=== PATIENT | female | born 1975 | race Two or more races ===

== ENCOUNTER 2022-02-24 23:24 | Emergency (ER) | payer OTHER ==
[2022-02-24] MEDS ORDERED: EPINEPHrine 1 MG/ML SDV IM STA (23:29)
[2022-02-24] MEDS ORDERED: diphenhydrAMINE 50 MG/ML SDV IVPUSH ONE (23:29)
[2022-02-24] MEDS ORDERED: Ondansetron 4 MG/2 ML SDV IVPUSH STA (23:31)
[2022-02-24] MEDS ORDERED: hydrOXYzine HCl 50 MG/ML SDV IM ONE (23:31)
[2022-02-24] MEDS ORDERED: methylPREDNISolone Sodium Succinate 125 MG/2 ML SDV IM ONE (23:35)
== END 2022-02-25 00:50 | disposition home or self-care (01) ==
LOC: FB.ED 23:24
DX: T78.1XXA Other adverse food reactions, not elsewhere classified, initial encounter (principal); Z91.018 Allergy to other foods; Z88.8 Allergy status to other drugs, medicaments and biological substances; Z79.899 Other long term (current) drug therapy
CPT/HCPCS: 96372; 96374; 96375; 99283; 99283-25; J0171; J1200; J2405; J2930

== ENCOUNTER 2022-10-30 20:14 | Emergency (ER) | payer BC, MEDICAID, OTHER ==
[2022-10-30] MEDS ORDERED: Sodium Chloride 0.9% 1,000 ML IV ONE (20:20)
[2022-10-30] MEDS ORDERED: diphenhydrAMINE 50 MG/ML SDV IVPUSH ONE (20:20)
[2022-10-30] MEDS ORDERED: methylPREDNISolone Sodium Succinate 125 MG/2 ML SDV IVPUSH ONE (20:20)
[2022-10-30] MEDS ORDERED: Ondansetron 4 MG/2 ML SDV IVPUSH ONE (20:21)
[2022-10-30] MEDS ORDERED: Famotidine 20 MG/2 ML SDV IVPUSH ONE (20:38)
== END 2022-10-30 21:24 | disposition home or self-care (01) ==
LOC: FB.ED 20:14
DX: T78.2XXA Anaphylactic shock, unspecified, initial encounter (principal); I10 Essential (primary) hypertension; Z91.013 Allergy to seafood; Z88.6 Allergy status to analgesic agent; Z88.8 Allergy status to other drugs, medicaments and biological substances; Z79.899 Other long term (current) drug therapy
CPT/HCPCS: 96361; 96374; 96375; 99284-25; J2405; J2930; J3490; J7030

== ENCOUNTER 2022-10-31 01:05 | Emergency (ER) | payer MEDICAID ==
[2022-10-31] MEDS ORDERED: Ondansetron 4 MG Tab.DIS PO ONE (01:09)
[2022-10-31] MEDS ORDERED: Famotidine 20 MG/2 ML SDV IVPUSH ONE (01:27)
[2022-10-31] MEDS ORDERED: methylPREDNISolone Sodium Succinate 125 MG/2 ML SDV IVPUSH ONE (01:27)
[2022-10-31 02:32] LABS: ESTIMATED GFR 79 mL/min (>60)
== END 2022-10-31 03:00 | disposition home or self-care (01) ==
LOC: FB.ED 01:05
DX: T78.2XXA Anaphylactic shock, unspecified, initial encounter (principal); I10 Essential (primary) hypertension; Z88.8 Allergy status to other drugs, medicaments and biological substances; Z91.013 Allergy to seafood; Z79.899 Other long term (current) drug therapy
CPT/HCPCS: 80053; 83520; 85025; 96374; 96375; 99284-25; J2930; J3490; Q0162

== ENCOUNTER 2022-12-26 22:50 | Emergency (ER) | payer MEDICAID ==
[2022-12-26] MEDS ORDERED: Sodium Chloride 0.9% 1,000 ML IV ONE (22:58)
[2022-12-26] MEDS ORDERED: Famotidine 20 MG/2 ML SDV IVPUSH ONE (22:59)
[2022-12-26] MEDS ORDERED: methylPREDNISolone Sodium Succinate 125 MG/2 ML SDV IVPUSH ONE (22:59)
[2022-12-26] MEDS ORDERED: Albuterol 0.083% 2.5 MG/3 ML Neb Soln NEB ONE (22:59)
== END 2022-12-27 00:12 | disposition home or self-care (01) ==
LOC: FB.ED 22:50
DX: T78.2XXA Anaphylactic shock, unspecified, initial encounter (principal); I10 Essential (primary) hypertension; Z88.8 Allergy status to other drugs, medicaments and biological substances; Z91.013 Allergy to seafood; Z79.899 Other long term (current) drug therapy
CPT/HCPCS: 94640; 96361; 96374; 96375; 99284; J2930; J3490; J7030

== ENCOUNTER 2023-11-22 07:29 | Day surgery (SDC) | payer MEDICAID, OTHER ==
[2023-11-22] MEDS ORDERED: Midazolam 1 MG/ML 2 ML SDV IV ONE (07:30)
[2023-11-22] MEDS ORDERED: Lactated Ringers 1,000 ML IV SCH (07:30)
[2023-11-22] MEDS ORDERED: Sodium Chloride 0.9% 10 ML Syringe FLUSH PRN (07:30)
[2023-11-22] MEDS ORDERED: Propofol 200 MG/20 ML SDV IV ONE (07:30)
[2023-11-22] MEDS ORDERED: Simethicone Drops 40 MG/0.6 ML 30 ML Bottle PO ONE (09:27)
== END 2023-11-22 10:44 | disposition home or self-care (01) ==
LOC: FB.SDS 07:29
PROVIDERS: ATTEND Surgery
DX: K62.5 Hemorrhage of anus and rectum (principal); R19.5 Other fecal abnormalities; I10 Essential (primary) hypertension; Z79.899 Other long term (current) drug therapy; Z88.8 Allergy status to other drugs, medicaments and biological substances; Z88.6 Allergy status to analgesic agent
CPT/HCPCS: 45378; A9270; J2250; J2704; J7120; 00811

== ENCOUNTER 2024-06-14 13:58 | Emergency (ER) | payer MEDICAID ==
[2024-06-14] MEDS: methylPREDNISolone Sodium Succinate 125 MG/2 ML SDV IM ONE (14:37)
[2024-06-14] MEDS: Albuterol/Ipratropium 3.0-0.5 MG/3 ML Neb Soln NEB ONE (14:37)
[2024-06-14] MEDS: Benzonatate 100 MG Cap PO ONE (14:39)
== END 2024-06-14 16:01 | disposition home or self-care (01) ==
LOC: FB.ED 13:58
DX: J45.909 Unspecified asthma, uncomplicated (principal); J20.9 Acute bronchitis, unspecified; I10 Essential (primary) hypertension; Z86.16 Personal history of COVID-19; Z79.899 Other long term (current) drug therapy; Z88.8 Allergy status to other drugs, medicaments and biological substances; Z91.013 Allergy to seafood; Z88.6 Allergy status to analgesic agent
CPT/HCPCS: 71046; 94640; 96372; 99283; 99285; A9270; J2919; J7620

== ENCOUNTER 2024-10-10 18:20 | Emergency (ER) | payer MEDICAID ==
[2024-10-10 19:06] LABS: BASOPHILS ABSOLUTE AUTO 0.1 x10-3/uL (0.0-0.1); EOSINOPHILS ABSOLUTE AUTO 1.5 x10-3/uL (0.0-0.8); EOSINOPHILS PERCENT AUTO 11.4 % (0.6-8.1); HEMATOCRIT 38.8 % (34.2-48.2); HEMOGLOBIN 12.4 g/dL (11.4-15.5); LYMPHOCYTES ABSOLUTE AUTO 3.5 x10-3/uL (1.0-4.4); LYMPHOCYTES PERCENT AUTO 26.5 % (18.4-52.1); MEAN CORPUSCULAR HEMOGLOBIN 24.3 pg (23.9-33.9); MEAN CORPUSCULAR VOLUME 76.1 fL (76.7-100.5); MEAN PLATELET VOLUME 7.2 fL (7.1-12.4); MONOCYTES ABSOLUTE AUTO 0.9 x10-3/uL (0.3-1.0); MONOCYTES PERCENT AUTO 6.5 % (4.4-15.7); NEUTROPHILS ABSOLUTE AUTO 7.2 x10-3/uL (1.5-6.3); NEUTROPHILS PERCENT AUTO 54.6 % (30.8-76.2); PLATELET COUNT,PLT 402 x10(3)uL (151-488); RED CELL DISTRIBUTION WIDTH 15.7 % (12.3-16.5); WHITE BLOOD CELL COUNT,WBC 13.2 x10-3/uL (3.0-10.3)
[2024-10-10 19:10] LABS: BLOOD UREA NITROGEN,BUN 12 mg/dL (7-18); BUN/CREATININE RATIO 17.1 (9-20); CARBON DIOXIDE,CO2 24 mmol/L (21-32); CHLORIDE,CL 106 mmol/L (100-110); CREATININE 0.7 mg/dL (0.55-1.02); ESTIMATED GFR 105 mL/min (>60); GLUCOSE RANDOM 83 mg/dL (80-116); POTASSIUM,K 3.6 mmol/L (3.5-5.3); SODIUM,NA 140 mmol/L (135-145)
[2024-10-10 19:15] LABS: A/G RATIO 0.9; ALANINE AMINOTRANSFERASE,ALT 27 U/L (12-36); ALBUMIN 3.4 g/dL (3.5-5.2); ALKALINE PHOSPHATASE 75 IU/L (56-112); ASPARTATE AMNIOTRANSFERASE,AST 11 IU/L (5-25); BILIRUBIN TOTAL 0.3 mg/dL (0.1-1.3); PROTEIN TOTAL,TP 7.2 g/dL (6.0-8.0)
[2024-10-10] MEDS: Montelukast 10 MG Tab PO ONE (19:48)
[2024-10-10] MEDS: Albuterol/Ipratropium 3.0-0.5 MG/3 ML Neb Soln NEB ONE (19:48)
[2024-10-10] MEDS: methylPREDNISolone Sodium Succinate 125 MG/2 ML SDV IM ONE (20:26)
== END 2024-10-10 20:51 | disposition home or self-care (01) ==
LOC: FB.ED 18:20
DX: J45.909 Unspecified asthma, uncomplicated (principal); I10 Essential (primary) hypertension; Z86.16 Personal history of COVID-19; Z88.0 Allergy status to penicillin; Z88.8 Allergy status to other drugs, medicaments and biological substances; Z91.013 Allergy to seafood; Z79.51 Long term (current) use of inhaled steroids; Z79.899 Other long term (current) drug therapy
CPT/HCPCS: 36415; 71046; 80053; 85025; 86140; 94640; 96372; 99284; A9270-GY; J2919; J7620

== ENCOUNTER 2024-10-17 00:17 | Emergency (ER) | payer MEDICAID ==
[2024-10-17] MEDS ORDERED: predniSONE 20 MG Tab PO ONE (00:18)
== END 2024-10-17 01:07 | disposition home or self-care (01) ==
LOC: FB.ED 00:17
DX: J45.909 Unspecified asthma, uncomplicated (principal); I10 Essential (primary) hypertension; Z86.16 Personal history of COVID-19; Z88.0 Allergy status to penicillin; Z88.6 Allergy status to analgesic agent; Z88.8 Allergy status to other drugs, medicaments and biological substances; Z91.013 Allergy to seafood; Z79.51 Long term (current) use of inhaled steroids; Z79.899 Other long term (current) drug therapy
CPT/HCPCS: 99283; J7512